=== PATIENT | female | born 1960 | race Caucasian/White ===

== ENCOUNTER 2016-08-28 15:52 | Emergency (ER) | payer MEDICARE, MEDICAID ==
[~2016-08-28] VITALS: Ht 160 cm; Wt 97.5 kg
[~2016-08-28 15:52] MED LIST: ALBUTEROL0.09 MG/A2 IH; AMOXICILLIN500 M1 PO; ARICEPT10 MG PO; BENTYL10 MG PO; CEPHALEXIN; CIPRO500 MG PO; CLARITIN10 MG PO; CLINDAMYCIN150 MG PO; CORTISPORIN SUS10 ML OT; DONEPEZIL HYDRO10 M1; FLAGYL500 MG PO; HYDROCHLOROTHIA25 MG; KEFLEX500 MG PO; LYRICA150 MG; MOTRIN800 MG; OYSTER CALCIUM1 TAB PO; PAXIL10 MG PO; PREDNICOT10 MG PO; SIMVASTATIN20 MG; THE MEDICINE S400 IU PO; VIBRAMYCIN100 MG PO; VICODIN 5/500 505 MG PO; Zofran4 MG PO
[2016-08-28 16:10] VITALS: BP 127/58
[2016-08-28] MEDS ORDERED: Motrin,Rufen800 MG PO (16:54)
== END 2016-08-28 17:00 | disposition home or self-care (01) ==
LOC: ED 15:52
DX: M17.11 Unilateral primary osteoarthritis, right knee (principal); F17.200 Nicotine dependence, unspecified, uncomplicated; Z88.6 Allergy status to analgesic agent; Z88.8 Allergy status to other drugs, medicaments and biological substances; Z79.899 Other long term (current) drug therapy

== ENCOUNTER → 2016-11-07 | Outpatient (CLI) | payer MEDICARE, MEDICAID ==
[~2016-11-07] MED LIST changes: +Motrin,Rufen800 MG PO
== END | disposition home or self-care (01) ==
LOC: ORTHO 02:03
DX: M17.11 Unilateral primary osteoarthritis, right knee (principal)

== ENCOUNTER → 2016-12-16 | Outpatient (CLI) | payer MEDICARE, MEDICAID | END | disposition home or self-care (01) | LOC: CT 11-12 08:00 | DX: M17.11 Unilateral primary osteoarthritis, right knee (principal) ==

== ENCOUNTER → 2017-02-25 | Outpatient (CLI) | payer MEDICARE, MEDICAID ==
[~2017-02-25] MED LIST changes: +MULTIPLE VITAM1 EACH PO; +PROBIOTIC250 MG PO; -SIMVASTATIN20 MG; +SIMVASTATIN20 MG PO; +VITAMIN D-32000 UNIT PO
[2017-02-25 10:41] LABS: BASO # 0.1 10*3/uL (0.0-0.1); BASO % 0.8 % (0.0-1.0); EOS # 0.5 10*3/uL (0.0-0.4); EOS % 4.1 % (1.0-4.0); HEMATOCRIT 45.3 % (37.0-47.0); HEMOGLOBIN 15.3 g/dl (12.0-16.0); LYMPH # 2.1 10*3/uL (1.3-4.4); LYMPH % 17.6 % (27.0-41.0); MEAN CORPUSCULAR HGB 32.1 pg (27.0-31.0); MEAN CORPUSCULAR HGB CONC 33.8 g/dl (33.0-37.0); MEAN PLATELET VOLUME 9.7 fl (9.6-12.3); MONO # 1.1 10*3/uL (0.1-1.0); MONO % 9.7 % (3.0-9.0); NEUT % 67.4 % (47.0-73.0); PLATELET COUNT AUTOMATED 231 10*3/uL (130-400); RED BLOOD COUNT 4.77 10*6/uL (4.10-5.10); RED CELL DISTRI WIDTH 14.2 % (0-14.5); WHITE BLOOD COUNT 11.8 10*3/uL (4.8-10.8)
[2017-02-25 10:54] LABS: BILIRUBIN NEGATIVE (NEGATIVE); BLOOD TRACE-INTACT (NEGATIVE); CLARITY SL CLOUDY (CLEAR); COLOR YELLOW (YELLOW); GLUCOSE NEGATIVE (NEGATIVE); KETONE NEGATIVE (NEGATIVE); LEUKO ESTERASE NEGATIVE (NEGATIVE); NITRITE NEGATIVE (NEGATIVE); UROBILINOGEN 0.2 E.U./dl (0.2-1.0)
[2017-02-25 11:03] LABS: BACTERIA 2+; YEAST TRACE
[2017-02-25 11:08] LABS: ALBUMIN 3.5 gm/dl (3.1-4.5); ALKALINE PHOSPHATASE 124 U/L (45-117); BUN 12 mg/dl (7-24); CHLORIDE 106 mmol/L (98-107); CREATININE 0.76 mg/dL (0.55-1.02); POTASSIUM 3.7 mmol/L (3.5-5.1); SGOT/AST 18 IU/L (3-35); SGPT/ALT 20 U/L (12-78); SODIUM 141 mmol/L (136-145); TOTAL PROTEIN 7.4 gm/dL (6.4-8.2)
== END | disposition home or self-care (01) ==
LOC: LAB 08:52
PROVIDERS: Orthopaedic Surgery
DX: M17.11 Unilateral primary osteoarthritis, right knee (principal); Z79.899 Other long term (current) drug therapy

== ENCOUNTER 2017-03-04 03:11 | Inpatient (IN) | payer MEDICARE, MEDICAID ==
[2017-02-25 09:34] VITALS: BP 143/78
[~2017-03-04] VITALS: Ht 160 cm; Wt 96.8 kg
[2017-03-04] VITALS (11 sets, daily range): BP systolic 103–133; BP diastolic 49–84
--- NOTE | 2017-03-04 11:08 | NUR ---
pt off floor..IS placed in room
--- NOTE | 2017-03-04 12:21 | NUR ---
A 57, admitted to , under the services of PEACE De La Paz DO with a diagnosis of TOTAL RIGHT KNEE ARTHROPLASTY. Chief complaint is KNEE PAIN. Patient arrived via ambulatory from [place]. Monitor applied. Initial assessment completed. Vital signs taken and recorded. PEACE DE LA PAZ DO notified of admission to the unit. Orders received. See assessment for past medical history, medications and allergies. Patient and/or family oriented to unit. [facility] visitation policy reviewed. Clothing/patient valuable form completed. DWIGHT TURPIN
--- NOTE | 2017-03-04 13:27 | NUR ---
PHYSICAL THERAPY PAtient reports she is not awake enough for PT at this time. Donna Marshall,PT
--- NOTE | 2017-03-04 14:36 | NUR ---
PT REQUESTED PAIN MEDICTION FOR POST-OP PAIN. PAIN RATED AT 10 OUT OF 10. DESCRIBED CONSTANT, ACHING, THROBBING, AND SHARP. DILAUDID GIVEN.
--- NOTE | 2017-03-04 14:41 | NUR ---
PHYSICAL THERAPY PAtient evaluated on 4, full evaluation to follow. COntimnue with PT as per plan of care with fall, TKA right LE WBAT and significant pain precautions. Will require SNF for imnpaired mobilty. PAtient is high complexity via chart review, tests and evaluation: 74167. Thank you for this referral. Donna Marshall,PT
--- NOTE | 2017-03-04 17:20 | NUR ---
DIRECTOR OF CUSTOMER SERVICE AND MADE AWARE THAT PT LEFT AMA.
--- NOTE | 2017-03-04 18:56 | NUR ---
PT PLACED ON CPM MACHINE. TOLERATED WELL. CALL LIGHT IN REACH. DAUGHTER IN ROOM.
--- NOTE | 2017-03-04 20:17 | NUR ---
5 RESTING IN BED WITH HOB ELEVATED. SIDE RAILS UP X'S 2. CALL LIGHT IN REACH. HEP LOCK INTACT. CPM MACHINE INTACT R LEG. MAGALLON PATENT AND DRAINING CLEAR YELLOW URINE. DRSG D/I LEFT LEG. NO DRNG NOTED. TRAPEZE TO BED. SCD INTACT TO LEFT LEG. TOES R FOOT WARM AND MOVEABLE.
--- NOTE | 2017-03-04 21:30 | NUR ---
2114 CPM MACHINE REMOVED. PT REPOSITIONED. HEEL PROTECTORS APPLIED PER ORDER. 2119 DILAUDID 1MG IV GIVEN ORDERED FOR POST-OP R KNEE PAIN, WILL MONITOR.
--- NOTE | 2017-03-04 22:10 | NUR ---
EARLIER DILAUDID EFFECTIVE. DRINKING HOT TEA. SHERITA REMAINS PATENT. NO DISTRESS NOTED. CONDITION GUARDED.
[2017-03-05] VITALS: BP 110/61
[2017-03-05 04:00] VITALS: BP 103/65
[2017-03-05 06:32] LABS: HEMATOCRIT 36.7 % (37.0-47.0); HEMOGLOBIN 12.3 g/dl (12.0-16.0); MEAN CELL VOLUME 95.6 fl (81.0-99.0); MEAN CORPUSCULAR HGB CONC 33.5 g/dl (33.0-37.0); MEAN PLATELET VOLUME 9.5 fl (9.6-12.3); PLATELET COUNT AUTOMATED 208 10*3/uL (130-400); RED BLOOD COUNT 3.84 10*6/uL (4.10-5.10); WHITE BLOOD COUNT 22.3 10*3/uL (4.8-10.8)
[2017-03-05 07:04] LABS: ALBUMIN 2.9 gm/dl (3.1-4.5); ALKALINE PHOSPHATASE 116 U/L (45-117); BUN 14 mg/dl (7-24); CHLORIDE 108 mmol/L (98-107); CHOLESTEROL 131 mg/dL (<200); FREE T4 1.47 ng/dl (0.76-1.46); HDL CHOLESTEROL 40 mg/dl (40-60); LDL CHOLESTEROL 55 mg/dL (9-159); PHOSPHOROUS 3.6 mg/dL (2.5-4.9); PLATELET SUFFICIENCY NORMAL (NORMAL); POTASSIUM 3.9 mmol/L (3.5-5.1); SGOT/AST 18 IU/L (3-35); SGPT/ALT 17 U/L (12-78); SODIUM 140 mmol/L (136-145); TOTAL CELLS COUNTED 100 #CELLS; TOTAL PROTEIN 6.5 gm/dL (6.4-8.2); TRIGLYCERIDES 182 mg/dl (<150); VLDL CHOLESTEROL 36 mg/dL (6-40)
[2017-03-05 07:09] LABS: THYROID STIM HORMONE (HS) 0.309 uIU/ml (0.358-4.75)
[2017-03-05 07:45] LABS: VITAMIN D, 25-HYDROXY 49.2 ng/mL (30-100)
[2017-03-05 08:00] VITALS: BP 104/56
--- NOTE | 2017-03-05 08:00 | NUR ---
Cut Out Worker in to talk to patient. Patient states lives at HOME ALONE with . There are A LOT steps in the home. Physician: DR DURAN Pharmacy: [facility] Home health services: NONE Patient's level of ADLs: MODERATE ASSIST Patient has working utilities: YES DME: CANE/WALKER/[facility] Follow-up physician's appointment after d/c: WILL BE MADE PRIOR TO Does patient want to access PORTAL?: Discharge plan . YUE DICKSON PT REQUESTING SNF STAY. PREFERS [facility] BUT WILL GO TO [facility] IF [facility] NOT POSSIBLE. [facility] NETWORK SECURITY ANALYST WILL MAKE REFERRAL. WILL NEED 3 NIGHT STAY.
--- NOTE | 2017-03-05 08:47 | NUR ---
GAVER PATIENT PRN MEDICATION FOR PAIN. PATIENT RATED A PAIN 7 OUT OF 10. WILL REASSESS FOR EFFECTIVENESS OF MEDICATION. SEE SHIFT ASSESSMENT
--- NOTE | 2017-03-05 09:27 | NUR ---
Faxed referral to [facility] for [facility] suites, will require 3 night stay. waiting on acceptance.
--- NOTE | 2017-03-05 09:30 | NUR ---
MAGALLON CATH DISCONTINUED, EARLY INTERVENTION SPECIALIST DISCONTINUED. LUISITO REED
--- NOTE | 2017-03-05 11:24 | NUR ---
PHYSICAL THERAPY Patient seen this am 1:1 for therapy supine in bed with compression pump L LE and reports 6/10 R knee pain. Patient instructed and performed supine R LE therex including gentle flexion to improve ROM, voicing increased c/o pain. Patient transfers sup to sit and sit to stand Min A x 1 and ambulates with use of wh walker, 40'x 1, demonstrating antalgic "step to" gait pattern. Patient returned to bedside chair and remained semi reclined with call light, telephone and tray table. Will continue per POC as tolerated to return to PLOF. Omid Coleman, BREAKER UP MACHINE OPERATOR
[2017-03-05 12:00] VITALS: BP 118/60
--- NOTE | 2017-03-05 12:22 | NUR ---
PHYSICAL THERAPY Derian seen this PM 1:1, Pt was up in her bedside chair from this morning's treatment and wanting back in bed, wanting to rest her leg. Start with Pt in sitting rom right LE, knee. Working right knee flexion, extension to Pt's pain tolerance and getting her to relax. Sit/stand and up on wheeled walker MIN A X 1, standing balance with weight shift and is WBAT and imoroving with her WBAT with weight shift. Then pivot and stand at bedside with another weight shift, then back sitting, back supine with therapy helping with right LE due to pain. Pt supine working act knee extension. Pt with call light and phone having no new complaint. Pt said that she will be ready for tomorrow. JOHN GAMBLE MILL CONTROLLER.
--- NOTE | 2017-03-05 15:39 | NUR ---
NORCO GIVEN FOR C/O RT KNEE PAIN. RATES 6/10 ON PAIN SCALE. WILL MONITOR.
[2017-03-05 16:00] VITALS: BP 110/63
[2017-03-05 20:00] VITALS: BP 122/67
--- NOTE | 2017-03-05 22:21 | NUR ---
PATIENT MEDICATED WITH NORCO PER PRN ORDER FOR C/O R. KNEE PAIN. RATED PAIN A 5/10 WITH 10 BEING THE WORST. PATIENT PLACED ON CPM MACHINE.
--- NOTE | 2017-03-05 23:45 | NUR ---
PATIENT RESTING BETTER. PAIN HAS DECREASED, REQUESTING TO BE REMOVED FROM CPM MACHINE.
[2017-03-06] VITALS: BP 142/73
--- NOTE | 2017-03-06 05:36 | NUR ---
PATIENT MEDICATED SLOWLY WITH DILAUDID PER PRN ORDER FOR C/O PAIN IN R. KNEE . RATED PAIN A 9/10 WITH 10 BEING THE WORST. SEE EMAR. REINFORCED USE OF CALL LIGHT
[2017-03-06 06:38] LABS: HEMATOCRIT 34.5 % (37.0-47.0); HEMOGLOBIN 11.5 g/dl (12.0-16.0); MEAN CELL VOLUME 96.1 fl (81.0-99.0); MEAN CORPUSCULAR HGB CONC 33.3 g/dl (33.0-37.0); MEAN PLATELET VOLUME 9.7 fl (9.6-12.3); PLATELET COUNT AUTOMATED 199 10*3/uL (130-400); RED BLOOD COUNT 3.59 10*6/uL (4.10-5.10); RED CELL DISTRI WIDTH 14.1 % (0-14.5); WHITE BLOOD COUNT 15.1 10*3/uL (4.8-10.8)
--- NOTE | 2017-03-06 06:45 | NUR ---
PATIENT RESTING QUIETLY. MEDICATION GIVEN EARLIER HELPED DECREASE PAIN.
[2017-03-06 07:07] LABS: BUN 22 mg/dl (7-24); CHLORIDE 109 mmol/L (98-107); CREATININE 0.82 mg/dL (0.55-1.02); POTASSIUM 3.8 mmol/L (3.5-5.1); SODIUM 142 mmol/L (136-145)
[2017-03-06 07:41] LABS: BASOPHILS 1 % (0-1); PLATELET SUFFICIENCY NORMAL (NORMAL); TOTAL CELLS COUNTED 100 #CELLS
[2017-03-06 08:00] VITALS: BP 122/60
--- NOTE | 2017-03-06 08:08 | NUR ---
Patient has been accepted to Rehab suites. Requires 3 night stay, can go Friday03/07/17 if medically stable for discharge.
--- NOTE | 2017-03-06 08:28 | NUR ---
PATIENT IS CURRENTLY SITTING IN CHAIR EATING BREAKFAST, PATIENT DENIED REQUEST FOR A BATH. JONNIE MARIE CABRERA
--- NOTE | 2017-03-06 09:49 | NUR ---
MEDICATED PO NORCO FOR C/O RIGHT KNEE PAIN.
--- NOTE | 2017-03-06 10:30 | NUR ---
NO FURTHER C/O AT THIS TIME.
--- NOTE | 2017-03-06 11:00 | NUR ---
DR. DR. PRITCHARD IN TO SEE PT AND CHANGED DRESSING-SITE ASYMPTOMATIC JONNIE MARIE SPNRCC
--- NOTE | 2017-03-06 11:19 | NUR ---
PHYSICAL THERAPY Mrs Hadley was seen this AM 1:1 and pt was up in her bedside chair by nursing. Said that nursing walker me the door and back. Pt going to sit and rest at this time. I stopped back 1 1/2 hour later to treat pt and Tereasa was back in bed. Will check back this PM. JOHN GAMBLE ASSISTANT REFINERY OPERATOR.
--- NOTE | 2017-03-06 11:30 | NUR ---
CPM MACHINE APPLIED AT 40 DEGREES, PT TOLERATED WELL JONNIE GONZALEZ
--- NOTE | 2017-03-06 11:36 | NUR ---
CMP PLACED ON PT.
[2017-03-06 12:00] VITALS: BP 125/76
--- NOTE | 2017-03-06 12:01 | NUR ---
TO X-RAY FOR ULTRASOUND, [facility] MACHINE REMOVED JONNIE EMERSON
--- NOTE | 2017-03-06 12:32 | NUR ---
BACK FROM X-RAY, DOES NOT WANT CPM MACHINE BACK ON AT PRESENT JONNIE GONZALEZ
--- NOTE | 2017-03-06 12:47 | NUR ---
MEDICATED IV DILAUDID FOR C/O RIGHT KNEE PAIN. STATES SHE THINKS CPM MAKES PAIN WORSE. WILL CONTINUE TO MONITOR.
--- NOTE | 2017-03-06 13:33 | NUR ---
PHYSICAL THERAPY Mrs Hadley seen this PM 1:1 for her therapy treatment, Pt supine in bed. Transfer supine/sit to edg of her bed working right knee flexion to pain tolerance flexion, then into extension. Sit/stand MIN A X 1. Gait with wheeled walker total 45' X 1, CGA X 1, and much verbal cueing for proper step through weight shift and improving. Pt up in her bedside chair, call light and phone no complaint but her knee pain. JOHN GAMBLE ATMOSPHERIC DRIER TENDER.
--- NOTE | 2017-03-06 13:57 | NUR ---
RESTING QUIETLY NO FURTHER C/O PAIN.
--- NOTE | 2017-03-06 13:58 | NUR ---
SITTING IN CHAIR, WAS WALKING IN ROOM WITH PT, TOLERATED WELL JONNIE GONZALEZ
[2017-03-06 16:00] VITALS: BP 132/51
--- NOTE | 2017-03-06 16:00 | NUR ---
RESTING QUIETLY NO C/O NO DISTRESS NOTED. STATES MUCH MORE COMFORTABLE NOW. WILL CONTINUE TO MONITOR.
--- NOTE | 2017-03-06 18:56 | NUR ---
MEDICATED PO NORCO FOR C/O PAIN.
[2017-03-06 20:00] VITALS: BP 134/62
--- NOTE | 2017-03-06 20:10 | NUR ---
CPM PLACED ON PATIENT.
--- NOTE | 2017-03-06 20:25 | NUR ---
PATIENT MEDICATED SLOWLY WITH DILAUDID PER PRN ORDER FOR C/O R. LEG PAIN. RATED PAIN A 6/10 WITH 10 BEING THE WORST. SEE EMAR. REINFORCED USE OF CALL LIGHT.
--- NOTE | 2017-03-06 21:30 | NUR ---
MEDICATION HELPED PAIN A LITTLE. PATIENT REMOVED FROM CPM MACHINE AT HER REQUEST. REINFORCED USE OF CALL LIGHT.
[2017-03-07] VITALS: BP 124/59
--- NOTE | 2017-03-07 03:09 | NUR ---
PATIENT MEDICATED SLOWLY WITH DILAUDID PER PRN ORDER FOR C/OR. LEG PAIN. RATED PAIN A 7/10 WITH 10 BEING THE WORST. SEE EMAR. REINFORCED USE OF CALL LIGHT,
[2017-03-07 06:10] LABS: HEMATOCRIT 34.5 % (37.0-47.0); HEMOGLOBIN 11.4 g/dl (12.0-16.0); MEAN CELL VOLUME 95.8 fl (81.0-99.0); MEAN CORPUSCULAR HGB 31.7 pg (27.0-31.0); MEAN PLATELET VOLUME 9.5 fl (9.6-12.3); PLATELET COUNT AUTOMATED 209 10*3/uL (130-400); RED CELL DISTRI WIDTH 14.1 % (0-14.5); WHITE BLOOD COUNT 14.2 10*3/uL (4.8-10.8)
[2017-03-07 07:35] LABS: BASOPHILS 2 % (0-1); PLATELET SUFFICIENCY NORMAL (NORMAL); TOTAL CELLS COUNTED 100 #CELLS
[2017-03-07 08:00] VITALS: BP 122/60
--- NOTE | 2017-03-07 09:49 | NUR ---
PHYSICAL THERAPY Patient presented to therapy with report of pain in the R Knee of 6/10. Patient was supine in bed. Patient performed supine to sitting at EOB with moderate assistance to move R LE to floor. Patient transferred sit to stand with SBA. Patient performed wt. shifting at W/W with Close Supervision. Patient then ambulated with W/W inside room 60' x 1 with Close Supervision. Patient performed ther ex in seated position with LEs raised ,including quad sets, ankle pumps, SLR with AAROM, hip abduction, and heel slides. Patient was left in seated position with call light within reach and LEs raised. Patient was 1:1 with this DAY CARE PROVIDER for 25 minutes total. ОЛЕГ TORO DAY CARE PROVIDER
--- NOTE | 2017-03-07 11:00 | NUR ---
PATIENT ON CPD AT 50 DEGREES. PATIENT TOLERATING WELL
[2017-03-07] MEDS ORDERED: VICO75300 PO (11:52)
[2017-03-07 12:00] VITALS: BP 118/72
[2017-03-07] MEDS ORDERED: LOVENOX30 MG/0.3 SC (12:22)
--- NOTE | 2017-03-07 13:29 | NUR ---
Patient is discharged to rehab suites, transportation scheduled for 2:00 PM, Nh and nursing notified.
--- NOTE | 2017-03-07 13:55 | NUR ---
CALLED REPORT TO OPAL AT THE REHAB SUITES
--- NOTE | 2017-03-07 13:59 | NUR ---
PHYSICAL THERAPY Patient was supine in bed this pm when approached for therapy, reporting 6/10 R knee pain and presented without cole wrap, but increased R LE edema. Patient transfered sup to stand, Min A with R LE support and ambulated with use of wh walker, 50'x 1, slow gayatri, demonstrating R LE antalgic / "step to" gait pattern. Patient states she has been compliant with CPM and remains a little sore each time following its use. Patient returned to supine in bed and tolerated PROM R knee flexion to improve ROM with decreased c/o pain. Patient will continue per POC to improve functional mobilty as tolerated and reports no change in pain c/o 6/10 following treatment. Omid Coleman, NAILER HAND
--- NOTE | 2017-03-07 14:40 | NUR ---
PT REQUESTED TO SPEAK WITH SW. SW SPOKE TO PT ABOUT MEDICIAD REAPPLICATION PROCESS. PT'S YEARLY EVALUATION FOR MEDICIAD IS DUE THE . SW ADVISED PT TO CALL [facility] TO LET THEM KNOW THAT SHE WAS IN HOSPITAL AND GOING TO REHAB SUITES AND SOME ITEMS MAY BE LATE. ADALBERTO ALSO ADVISED THAT SW AT REHAB SUITES CAN ASSIST PT IN SENDING COPIES TO [facility] OF WHAT SHE HAS. PT WAS THANKSFUL FOR THE ADVICE AND ASSISTANCE.
--- NOTE | 2017-03-07 14:43 | NUR ---
Discharge instructions reviewed with patient/family. Patient receptive and verbalizes understanding. Follow-up care arranged. Written instructions given to patient/family. GHISLAINE MENDEZ
--- NOTE | 2017-03-07 16:27 | NUR ---
PHYSICAL THERAPY CO-SIGN I approve of the Phyical Therapy notes written above. RJ DOYLE PT
== END 2017-03-07 14:43 | disposition other institution (70) | DRG 470 ==
LOC: SDC 03:11 → 4E 07:37 → SDC 08:45 → 4E 08:49
PROVIDERS: Student in an Organized Health Care Education/Training Program; ADMIT Internal Medicine
PROC: 0SRC0J9 Replacement of Right Knee Joint with Synthetic Substitute, Cemented, Open Approach (ICD-10-PCS; principal; 2017-03-04)
DX: M17.11 Unilateral primary osteoarthritis, right knee (principal); K76.0 Fatty (change of) liver, not elsewhere classified; D72.823 Leukemoid reaction; E78.5 Hyperlipidemia, unspecified; E66.9 Obesity, unspecified; E55.9 Vitamin D deficiency, unspecified; F17.210 Nicotine dependence, cigarettes, uncomplicated; Z83.3 Family history of diabetes mellitus; Z82.49 Family history of ischemic heart disease and other diseases of the circulatory system; Z88.5 Allergy status to narcotic agent; Z88.6 Allergy status to analgesic agent; Z88.8 Allergy status to other drugs, medicaments and biological substances; Z71.6 Tobacco abuse counseling; Z90.710 Acquired absence of both cervix and uterus; Z68.37 Body mass index [BMI] 37.0-37.9, adult; Z79.1 Long term (current) use of non-steroidal anti-inflammatories (NSAID); Z79.899 Other long term (current) drug therapy; Z22.322 Carrier or suspected carrier of Methicillin resistant Staphylococcus aureus

== ENCOUNTER 2017-03-25 15:12 | Inpatient (IN) | payer MEDICARE, MEDICAID ==
[~2017-03-25] VITALS: Ht 160 cm; Wt 99.8 kg
--- NOTE | ~2017-03-25 | PR ---
[place], [place] PROGRESS NOTE NAME: [id number] UNIT #: [id number] ROOM: 528 DOCTOR: BRENDA MCCRAY,JULY BIRTHDATE: [birth year] DOS: 03/30/2017 SUBJECTIVE: The patient is being followed for possible right knee infection. She had a total knee arthroplasty done with possible postop infection. She had knee cellulitis at the time of admission. I aspirated from the knee. Cultures have been negative. Blood cultures are negative. ID is following for the above. She is currently on Teflaro and rifampin with anticipated 4-6 weeks of IV antibiotics. She is doing well, tolerating the antibiotics. Denies fevers, chills, nausea, vomiting or diarrhea. No rash or itch. No cough, shortness of breath. Pain in the right knee is improving. VITAL SIGNS: Show temperature 98.0, pulse 61, respirations 16, BP 106/48. CURRENT MEDICATIONS: Include Teflaro, rifampin, [place], vitamin D, multivitamin, Lovenox, Aricept, Zocor, Lyrica, Claritin, Vicoprofen, Restoril and Zofran. LABORATORY DATA: WBCs 10.6, platelets 208. BUN 19, creatinine 1.15. LFTs within normal limits. PHYSICAL EXAMINATION: GENERAL: A 57-year-old female, in no acute distress. THROAT: Normocephalic, no thrush. LUNGS: Clear to auscultation bilaterally. No respirations even and unlabored. HEART: Regular rhythm. No murmur appreciated. ABDOMEN: Soft, nontender. EXTREMITIES: Mild edema in the right lower extremity. SKIN: Warm, dry, free of rashes. PICC in place. Dressing dry and intact. ASSESSMENT: Right knee cellulitis postoperatively from a total knee arthroplasty with concern for knee involvement. PLAN: We will continue the Teflaro and rifampin for 4-6 weeks. I discussed with the patient. She has [place] Medicaid. Normally, they will cover home IV antibiotics if that is at all possible as opposed to having to come into the hospital to receive them. Case discussed with Dr. Isis Nails. She will need follow up as an outpatient with Dr. Churchill. JULY MAHENDRA GUTIERREZ [place], [place] PROGRESS NOTE NAME: LANDEN BENITEZ UNIT #: [id number] ROOM: 528 DOCTOR: BRENDA MCCRAYJULY BIRTHDATE: [birth year] [place] NAILS MD CM:PNCAROL [id number] GIRISH BRENDA MCCRAY 03/31/17 0545 interface
--- NOTE | ~2017-03-25 | PR ---
[place], [place] PROGRESS [id number] #: [id number] ROOM: 528 DOCTOR: BRENDA MCCRAY,JULY BIRTHDATE: [birth year] DOS: 03/29/2017 SUBJECTIVE: The patient is a 57-year-old female who is being followed for a right knee cellulitis and infection. She had a radial head ____ total knee arthroplasty. She has had synovial fluid culture from the knee from the . Culture is negative. No organisms on Gram stain. Admitting blood cultures from the are sterile. Her urine cultures are sterile. She is currently on Teflaro and rifampin. ID is following for right knee cellulitis, WBCs are 12.0, platelets 249, BUN 20, creatinine 1.25. LFTs within normal limits. She is alert and oriented, tolerating the antibiotics. No nausea or vomiting. Stools are little loose. No rash or itch. No cough or shortness of breath. No recent fevers or shaking chills. Pain in the right knee is improving. CURRENT MEDICATIONS: Include Teflaro, rifampin, Lasix, [place], multivitamin, Lovenox, Aricept, Zocor, Lyrica, Claritin, Vicoprofen, Restoril, Zofran, milk of mag, Dulcolax, and Tylenol. PHYSICAL EXAMINATION: VITAL SIGNS: Show temperature 98.6, pulse 69, respirations 20, BP 140/77. GENERAL: A 57-year-old female in no acute distress. HEAD, EYES, EARS, NOSE AND THROAT: Normocephalic, no thrush. LUNGS: Clear to auscultation bilaterally. RESPIRATIONS: Even and unlabored. HEART: Regular rhythm. No murmur appreciated. ABDOMEN: Soft, nontender. EXTREMITIES: Right lower extremity +2 edema. Right knee with some scabbing along the incision. No erythema. Does have increased warmth. Mild edema of the knee. SKIN: Otherwise, warm, dry, free of rashes. Right arm PICC in place. Dressing dry and intact. No phlebitis. ASSESSMENT: Right knee cellulitis, possible postop infection, status post total knee arthroplasty. PLAN: Synovial fluid cultures were negative. This may be a superficial infection. She is to have 4-6 weeks of IV antibiotics as per Dr. Churchill and case discussed with Dr. Isis Nails. Arrangements were being made for her discharge Friday for home IV antibiotics. ADDENDUM After reviewing the chart, labs and radiographs, I agree with the following plans as described above. We will follow the patient up clinically and adjust accordingly. JULY MAHENDRA GUTIERREZ [place], [place] PROGRESS NOTE NAME: LANDEN BENITEZ UNIT #: [id number] ROOM: 528 DOCTOR: BRENDA MCCRAY BIRTHDATE: [birth year] [employer] NAILS MD CM:PNTRANS [id number] JULY BRENDA MCCRAY 03/30/17 0704 interface
[~2017-03-25 15:12] MED LIST changes: +ARICEPT10 M1 PO; -ARICEPT10 MG PO; +LOVENOX30 MG/0.3 SC; +VICO75300 PO
[2017-03-25 15:15] VITALS: BP 130/57
[2017-03-25 16:18] LABS: BASO # 0.1 10*3/uL (0.0-0.1); BASO % 0.5 % (0.0-1.0); EOS # 0.4 10*3/uL (0.0-0.4); EOS % 2.8 % (1.0-4.0); HEMATOCRIT 36.4 % (37.0-47.0); HEMOGLOBIN 12.1 g/dl (12.0-16.0); LYMPH # 2.5 10*3/uL (1.3-4.4); LYMPH % 16.2 % (27.0-41.0); MEAN CELL VOLUME 96.6 fl (81.0-99.0); MEAN CORPUSCULAR HGB 32.1 pg (27.0-31.0); MEAN CORPUSCULAR HGB CONC 33.2 g/dl (33.0-37.0); MONO # 1.3 10*3/uL (0.1-1.0); MONO % 8.3 % (3.0-9.0); NEUT # 11.1 10*3/uL (2.3-7.9); NEUT % 71.6 % (47.0-73.0); PLATELET COUNT AUTOMATED 345 10*3/uL (130-400); RED BLOOD COUNT 3.77 10*6/uL (4.10-5.10); RED CELL DISTRI WIDTH 14.6 % (0-14.5); WHITE BLOOD COUNT 15.5 10*3/uL (4.8-10.8)
[2017-03-25 16:33] LABS: ALBUMIN 3.1 gm/dl (3.1-4.5); ALKALINE PHOSPHATASE 115 U/L (45-117); BUN 14 mg/dl (7-24); CHLORIDE 109 mmol/L (98-107); CREATININE 1.01 mg/dL (0.55-1.02); POTASSIUM 3.8 mmol/L (3.5-5.1); SGOT/AST 19 IU/L (3-35); SGPT/ALT 27 U/L (12-78); SODIUM 142 mmol/L (136-145); TOTAL PROTEIN 7.3 gm/dL (6.4-8.2)
[2017-03-25 19:05] VITALS: BP 134/57
[2017-03-25 19:21] LABS: BILIRUBIN NEGATIVE (NEGATIVE); BLOOD NEGATIVE (NEGATIVE); CLARITY CLOUDY (CLEAR); COLOR YELLOW (YELLOW); GLUCOSE NEGATIVE (NEGATIVE); KETONE NEGATIVE (NEGATIVE); LEUKO ESTERASE NEGATIVE (NEGATIVE); NITRITE NEGATIVE (NEGATIVE); UROBILINOGEN 0.2 E.U./dl (0.2-1.0)
[2017-03-25 19:28] LABS: BACTERIA 4+; RBC 0-2 rbc/hpf (0-2)
[2017-03-25 20:00] VITALS: BP 134/57
[2017-03-26] VITALS: BP 108/58
[2017-03-26 06:19] LABS: HEMATOCRIT 34.6 % (37.0-47.0); HEMOGLOBIN 11.6 g/dl (12.0-16.0); MEAN CELL VOLUME 96.1 fl (81.0-99.0); MEAN CORPUSCULAR HGB 32.2 pg (27.0-31.0); MEAN CORPUSCULAR HGB CONC 33.5 g/dl (33.0-37.0); PLATELET COUNT AUTOMATED 299 10*3/uL (130-400); RED CELL DISTRI WIDTH 14.6 % (0-14.5); WHITE BLOOD COUNT 9.8 10*3/uL (4.8-10.8)
[2017-03-26 06:55] LABS: ALBUMIN 2.9 gm/dl (3.1-4.5); ALKALINE PHOSPHATASE 110 U/L (45-117); BUN 11 mg/dl (7-24); CHLORIDE 110 mmol/L (98-107); CREATININE 0.77 mg/dL (0.55-1.02); PHOSPHOROUS 3.9 mg/dL (2.5-4.9); POTASSIUM 3.7 mmol/L (3.5-5.1); SGOT/AST 15 IU/L (3-35); SGPT/ALT 25 U/L (12-78); SODIUM 142 mmol/L (136-145); TOTAL PROTEIN 6.7 gm/dL (6.4-8.2)
[2017-03-26 07:00] LABS: BASOPHILS 2 % (0-1); PLATELET SUFFICIENCY NORMAL (NORMAL); TOTAL CELLS COUNTED 100 #CELLS
[2017-03-26 08:00] VITALS: BP 121/60
[2017-03-26 12:00] VITALS: BP 116/59
[2017-03-26 16:00] VITALS: BP 131/61
[2017-03-26 20:00] VITALS: BP 150/88
[2017-03-27] VITALS: BP 130/74
[2017-03-27 06:29] LABS: HEMATOCRIT 35.1 % (37.0-47.0); HEMOGLOBIN 11.6 g/dl (12.0-16.0); MEAN CELL VOLUME 95.9 fl (81.0-99.0); MEAN CORPUSCULAR HGB 31.7 pg (27.0-31.0); MEAN PLATELET VOLUME 9.2 fl (9.6-12.3); PLATELET COUNT AUTOMATED 291 10*3/uL (130-400); RED BLOOD COUNT 3.66 10*6/uL (4.10-5.10); RED CELL DISTRI WIDTH 14.3 % (0-14.5); WHITE BLOOD COUNT 14.3 10*3/uL (4.8-10.8)
[2017-03-27 06:52] LABS: BUN 13 mg/dl (7-24); CHLORIDE 110 mmol/L (98-107); CREATININE 1.08 mg/dL (0.55-1.02); POTASSIUM 3.7 mmol/L (3.5-5.1); SODIUM 142 mmol/L (136-145)
[2017-03-27 07:19] LABS: TOTAL CELLS COUNTED 100 #CELLS
[2017-03-27 07:20] LABS: PLATELET SUFFICIENCY NORMAL (NORMAL)
[2017-03-27 08:00] VITALS: BP 154/76
[2017-03-27 12:00] VITALS: BP 121/71
[2017-03-27 16:00] VITALS: BP 123/68
[2017-03-27 20:00] VITALS: BP 155/83
[2017-03-28] VITALS: BP 151/84
[2017-03-28 06:57] LABS: BASO # 0.1 10*3/uL (0.0-0.1); BASO % 0.5 % (0.0-1.0); EOS # 0.3 10*3/uL (0.0-0.4); EOS % 2.5 % (1.0-4.0); HEMATOCRIT 34.3 % (37.0-47.0); HEMOGLOBIN 11.2 g/dl (12.0-16.0); LYMPH # 1.5 10*3/uL (1.3-4.4); LYMPH % 12.7 % (27.0-41.0); MEAN CELL VOLUME 96.6 fl (81.0-99.0); MEAN CORPUSCULAR HGB 31.5 pg (27.0-31.0); MEAN CORPUSCULAR HGB CONC 32.7 g/dl (33.0-37.0); MEAN PLATELET VOLUME 9.3 fl (9.6-12.3); MONO # 1.3 10*3/uL (0.1-1.0); MONO % 11.1 % (3.0-9.0); NEUT # 8.7 10*3/uL (2.3-7.9); NEUT % 72.9 % (47.0-73.0); PLATELET COUNT AUTOMATED 256 10*3/uL (130-400); RED BLOOD COUNT 3.55 10*6/uL (4.10-5.10); RED CELL DISTRI WIDTH 14.6 % (0-14.5)
[2017-03-28 07:10] LABS: CREATININE 1.23 mg/dL (0.55-1.02); PHOSPHOROUS 4.5 mg/dL (2.5-4.9); POTASSIUM 3.7 mmol/L (3.5-5.1)
[2017-03-28 08:00] VITALS: BP 138/74
[2017-03-28 12:00] VITALS: BP 158/78
[2017-03-28] MEDS ORDERED: TEFLARO600 MG IV (14:53)
[2017-03-28 16:00] VITALS: BP 152/76
[2017-03-28 20:00] VITALS: BP 132/62
[2017-03-29] VITALS: BP 143/72
[2017-03-29 06:06] LABS: BASO # 0.1 10*3/uL (0.0-0.1); BASO % 0.6 % (0.0-1.0); EOS # 0.4 10*3/uL (0.0-0.4); EOS % 3.3 % (1.0-4.0); LYMPH # 1.7 10*3/uL (1.3-4.4); MEAN CORPUSCULAR HGB 32.3 pg (27.0-31.0); MEAN CORPUSCULAR HGB CONC 33.3 g/dl (33.0-37.0); MEAN PLATELET VOLUME 9.5 fl (9.6-12.3); MONO # 1.2 10*3/uL (0.1-1.0); MONO % 9.7 % (3.0-9.0); NEUT # 8.6 10*3/uL (2.3-7.9); PLATELET COUNT AUTOMATED 249 10*3/uL (130-400); RED BLOOD COUNT 3.71 10*6/uL (4.10-5.10); RED CELL DISTRI WIDTH 14.4 % (0-14.5)
[2017-03-29 06:41] LABS: ALBUMIN 3.1 gm/dl (3.1-4.5); CREATININE 1.25 mg/dL (0.55-1.02); POTASSIUM 3.5 mmol/L (3.5-5.1)
[2017-03-29 06:44] LABS: TOTAL PROTEIN 7.1 gm/dL (6.4-8.2)
[2017-03-29 12:00] VITALS: BP 140/77
[2017-03-29 16:00] VITALS: BP 137/77
[2017-03-29 20:00] VITALS: BP 155/75
[2017-03-30] VITALS: BP 145/69
[2017-03-30 08:00] VITALS: BP 129/67
[2017-03-30 10:28] LABS: BASO # 0.1 10*3/uL (0.0-0.1); BASO % 0.6 % (0.0-1.0); EOS # 0.3 10*3/uL (0.0-0.4); EOS % 2.9 % (1.0-4.0); HEMOGLOBIN 11.7 g/dl (12.0-16.0); LYMPH # 1.2 10*3/uL (1.3-4.4); LYMPH % 11.3 % (27.0-41.0); MEAN CELL VOLUME 96.7 fl (81.0-99.0); MEAN CORPUSCULAR HGB 32.3 pg (27.0-31.0); MEAN CORPUSCULAR HGB CONC 33.4 g/dl (33.0-37.0); MEAN PLATELET VOLUME 9.7 fl (9.6-12.3); MONO # 0.9 10*3/uL (0.1-1.0); MONO % 8.6 % (3.0-9.0); NEUT # 8.1 10*3/uL (2.3-7.9); NEUT % 76.3 % (47.0-73.0); PLATELET COUNT AUTOMATED 208 10*3/uL (130-400); RED BLOOD COUNT 3.62 10*6/uL (4.10-5.10); RED CELL DISTRI WIDTH 14.3 % (0-14.5); WHITE BLOOD COUNT 10.6 10*3/uL (4.8-10.8)
[2017-03-30 11:03] LABS: CREATININE 1.15 mg/dL (0.55-1.02); POTASSIUM 3.5 mmol/L (3.5-5.1)
[2017-03-30 12:00] VITALS: BP 106/48
[2017-03-30 16:00] VITALS: BP 105/52
[2017-03-30 20:00] VITALS: BP 114/58
[2017-03-31] VITALS: BP 138/74
[2017-03-31 07:02] LABS: CREATININE 1.19 mg/dL (0.55-1.02); POTASSIUM 3.7 mmol/L (3.5-5.1)
[2017-03-31 08:00] VITALS: BP 116/60
[2017-03-31 12:00] VITALS: BP 118/62
[2017-03-31] MEDS ORDERED: Rimactane,Rifa300 MG PO (15:44)
[2017-03-31 16:00] VITALS: BP 109/92
[2017-03-31 20:00] VITALS: BP 128/69
== END 2017-03-31 21:12 | disposition home or self-care (01) | DRG 862 ==
LOC: ED 15:12 → EDHOLD 17:44 → 5E 17:44
PROVIDERS: Emergency Medicine; Internal Medicine; Internal Medicine Nephrology; Registered Nurse; ADMIT Student in an Organized Health Care Education/Training Program
PROC: 0S9C3ZX Drainage of Right Knee Joint, Percutaneous Approach, Diagnostic (ICD-10-PCS; principal; 2017-03-27)
PROC: 02HV33Z Insertion of Infusion Device into Superior Vena Cava, Percutaneous Approach (ICD-10-PCS; 2017-03-29)
DX: T81.4XXA Infection following a procedure, initial encounter (principal); N17.0 Acute kidney failure with tubular necrosis; E44.0 Moderate protein-calorie malnutrition; A04.72 Enterocolitis due to Clostridium difficile, not specified as recurrent; R13.10 Dysphagia, unspecified; E87.8 Other disorders of electrolyte and fluid balance, not elsewhere classified; L03.115 Cellulitis of right lower limb; E78.5 Hyperlipidemia, unspecified; E66.9 Obesity, unspecified; D72.825 Bandemia; F17.210 Nicotine dependence, cigarettes, uncomplicated; Z96.651 Presence of right artificial knee joint; K76.0 Fatty (change of) liver, not elsewhere classified; D72.821 Monocytosis (symptomatic); Y83.8 Other surgical procedures as the cause of abnormal reaction of the patient, or of later complication, without mention of misadventure at the time of the procedure; Z87.820 Personal history of traumatic brain injury; Z90.710 Acquired absence of both cervix and uterus; Z71.6 Tobacco abuse counseling; Z68.38 Body mass index [BMI] 38.0-38.9, adult; Z79.899 Other long term (current) drug therapy; Y92.89 Other specified places as the place of occurrence of the external cause; Z88.8 Allergy status to other drugs, medicaments and biological substances; Z88.5 Allergy status to narcotic agent; Z82.49 Family history of ischemic heart disease and other diseases of the circulatory system; Z83.3 Family history of diabetes mellitus

== ENCOUNTER → 2017-04-29 | Outpatient (CLI) | payer MEDICARE, MEDICAID ==
[~2017-04-29] MED LIST changes: +Rimactane,Rifa300 MG PO; +TEFLARO600 MG IV
== END | disposition home or self-care (01) ==
LOC: ORTHO 09:38
DX: Z47.1 Aftercare following joint replacement surgery (principal); Z96.651 Presence of right artificial knee joint

== ENCOUNTER 2017-09-23 15:53 | Inpatient (IN) | payer MEDICARE, MEDICAID ==
[~2017-09-23] VITALS: Ht 160 cm; Wt 100.4 kg
[~2017-09-23 15:53] MED LIST changes: +DUONEB 3 MG/3 ML3 M1 INH; +GUAIFEN-CODEINE5 ML PO; +LEVOFLOXACIN500 MG PO; +LYRICA150 M1 PO; -LYRICA150 MG; +PREDNISONE10 MG PO; +PROAIR HFA8.5 GM INH
[2017-09-23 15:58] VITALS: BP 146/68
[2017-09-23 16:41] LABS: HEMATOCRIT 43.7 % (37.0-47.0); HEMOGLOBIN 14.8 g/dl (12.0-16.0); MEAN CELL VOLUME 95.6 fl (81.0-99.0); MEAN CORPUSCULAR HGB 32.4 pg (27.0-31.0); MEAN CORPUSCULAR HGB CONC 33.9 g/dl (33.0-37.0); MEAN PLATELET VOLUME 9.6 fl (9.6-12.3); PLATELET COUNT AUTOMATED 253 10*3/uL (130-400); RED BLOOD COUNT 4.57 10*6/uL (4.10-5.10); RED CELL DISTRI WIDTH 14.4 % (0-14.5); WHITE BLOOD COUNT 20.4 10*3/uL (4.8-10.8)
[2017-09-23 16:57] LABS: ACT PARTIAL THROMBO TIME 24.7 SECONDS (20.8-31.5)
[2017-09-23 17:07] LABS: BILIRUBIN NEGATIVE (NEGATIVE); BLOOD NEGATIVE (NEGATIVE); CLARITY CLEAR (CLEAR); COLOR YELLOW (YELLOW); GLUCOSE NEGATIVE (NEGATIVE); KETONE NEGATIVE (NEGATIVE); LEUKO ESTERASE NEGATIVE (NEGATIVE); NITRITE NEGATIVE (NEGATIVE); PH 6.5 (5.0-9.0); UROBILINOGEN 0.2 E.U./dl (0.2-1.0)
[2017-09-23 17:07] LABS: ALBUMIN 3.6 gm/dl (3.1-4.5); ALKALINE PHOSPHATASE 142 U/L (45-117); BUN 19 mg/dl (7-24); CHLORIDE 109 mmol/L (98-107); CREATININE 0.91 mg/dL (0.55-1.02); POTASSIUM 4.6 mmol/L (3.5-5.1); SGOT/AST 57 IU/L (3-35); SGPT/ALT 50 U/L (12-78); SODIUM 141 mmol/L (136-145); TOTAL PROTEIN 8.1 gm/dL (6.4-8.2)
[2017-09-23 17:08] LABS: PLATELET SUFFICIENCY NORMAL (NORMAL); TOTAL CELLS COUNTED 100 #CELLS
[2017-09-23 17:09] LABS: POLYCHROMASIA SLIGHT
[2017-09-23 17:12] LABS: TROPONIN I < 0.015 ng/ml (<0.045)
[2017-09-23 17:15] LABS: WBC 0-2 wbc/hpf (0-5)
[2017-09-23 17:38] VITALS: BP 136/70
[2017-09-23 18:12] VITALS: BP 115/69
[2017-09-23 20:00] VITALS: BP 115/69
[2017-09-24] VITALS: BP 137/71
[2017-09-24 07:44] LABS: HEMATOCRIT 42.2 % (37.0-47.0); HEMOGLOBIN 13.9 g/dl (12.0-16.0); MEAN CELL VOLUME 96.6 fl (81.0-99.0); MEAN CORPUSCULAR HGB 31.8 pg (27.0-31.0); MEAN CORPUSCULAR HGB CONC 32.9 g/dl (33.0-37.0); MEAN PLATELET VOLUME 9.7 fl (9.6-12.3); PLATELET COUNT AUTOMATED 226 10*3/uL (130-400); RED BLOOD COUNT 4.37 10*6/uL (4.10-5.10); RED CELL DISTRI WIDTH 14.3 % (0-14.5); WHITE BLOOD COUNT 20.4 10*3/uL (4.8-10.8)
[2017-09-24 07:57] VITALS: BP 116/58
[2017-09-24 08:06] LABS: PLATELET SUFFICIENCY NORMAL (NORMAL); TOTAL CELLS COUNTED 100 #CELLS
[2017-09-24 08:13] LABS: ALBUMIN 3.4 gm/dl (3.1-4.5); BUN 18 mg/dl (7-24); CHLORIDE 108 mmol/L (98-107); POTASSIUM 3.9 mmol/L (3.5-5.1); SODIUM 142 mmol/L (136-145); TOTAL PROTEIN 7.6 gm/dL (6.4-8.2)
[2017-09-24 08:25] LABS: ALKALINE PHOSPHATASE 124 U/L (45-117); CHOLESTEROL 184 mg/dL (<200); CREATININE 0.97 mg/dL (0.55-1.02); HDL CHOLESTEROL 60 mg/dl (40-60); LDL CHOLESTEROL 97 mg/dL (9-159); PHOSPHOROUS 3.2 mg/dL (2.5-4.9); SGOT/AST 43 IU/L (3-35); SGPT/ALT 43 U/L (12-78); THYROID STIM HORMONE (HS) 0.292 uIU/ml (0.358-4.75); TRIGLYCERIDES 137 mg/dl (<150); VLDL CHOLESTEROL 27 mg/dL (6-40)
[2017-09-24 11:56] VITALS: BP 151/69
[2017-09-24 16:00] VITALS: BP 105/53
[2017-09-24 20:00] VITALS: BP 111/54; BP 147/51
[2017-09-25] VITALS: BP 111/70
[2017-09-25 06:54] LABS: HEMATOCRIT 41.1 % (37.0-47.0); HEMOGLOBIN 13.4 g/dl (12.0-16.0); MEAN CELL VOLUME 97.6 fl (81.0-99.0); MEAN CORPUSCULAR HGB 31.8 pg (27.0-31.0); MEAN CORPUSCULAR HGB CONC 32.6 g/dl (33.0-37.0); MEAN PLATELET VOLUME 9.7 fl (9.6-12.3); PLATELET COUNT AUTOMATED 233 10*3/uL (130-400); RED BLOOD COUNT 4.21 10*6/uL (4.10-5.10); RED CELL DISTRI WIDTH 14.3 % (0-14.5); WHITE BLOOD COUNT 21.7 10*3/uL (4.8-10.8)
[2017-09-25 07:26] LABS: ALBUMIN 3.2 gm/dl (3.1-4.5); CHLORIDE 112 mmol/L (98-107); POTASSIUM 4.1 mmol/L (3.5-5.1); SGPT/ALT 39 U/L (12-78); SODIUM 144 mmol/L (136-145)
[2017-09-25 07:30] LABS: PLATELET SUFFICIENCY NORMAL (NORMAL); TOTAL CELLS COUNTED 100 #CELLS
[2017-09-25 07:34] LABS: ALKALINE PHOSPHATASE 116 U/L (45-117); BUN 20 mg/dl (7-24); CREATININE 0.81 mg/dL (0.55-1.02); SGOT/AST 29 IU/L (3-35); TOTAL PROTEIN 6.9 gm/dL (6.4-8.2)
[2017-09-25 08:00] VITALS: BP 122/68
[2017-09-25] MEDS ORDERED: AZITHROMYCIN500 M2 PO (10:52)
[2017-09-25] MEDS ORDERED: FLONASE ALLERG9.9 ML NAS (10:52)
[2017-09-25] MEDS ORDERED: BENZONATATE100 M1 PO (10:52)
[2017-09-25] MEDS ORDERED: PREDNISONE10 MG PO (10:52)
== END 2017-09-25 11:42 | disposition home or self-care (01) | DRG 871 ==
LOC: ED 15:53 → EDHOLD 17:24 → 4E 17:24
PROVIDERS: Internal Medicine Hospice and Palliative Medicine; Physician Assistant
DX: A41.9 Sepsis, unspecified organism (principal); J18.9 Pneumonia, unspecified organism; E87.8 Other disorders of electrolyte and fluid balance, not elsewhere classified; J45.901 Unspecified asthma with (acute) exacerbation; E83.41 Hypermagnesemia; E44.1 Mild protein-calorie malnutrition; K57.90 Diverticulosis of intestine, part unspecified, without perforation or abscess without bleeding; E78.5 Hyperlipidemia, unspecified; Z96.651 Presence of right artificial knee joint; D72.810 Lymphocytopenia; R74.0 Nonspecific elevation of levels of transaminase and lactic acid dehydrogenase [LDH]; M15.9 Polyosteoarthritis, unspecified; K76.0 Fatty (change of) liver, not elsewhere classified; J30.2 Other seasonal allergic rhinitis; E66.9 Obesity, unspecified; G40.909 Epilepsy, unspecified, not intractable, without status epilepticus; Z87.820 Personal history of traumatic brain injury; Z90.710 Acquired absence of both cervix and uterus; Z83.3 Family history of diabetes mellitus; Z82.49 Family history of ischemic heart disease and other diseases of the circulatory system; Z88.1 Allergy status to other antibiotic agents; Z88.8 Allergy status to other drugs, medicaments and biological substances; Z79.899 Other long term (current) drug therapy; Z71.6 Tobacco abuse counseling; Z72.0 Tobacco use; Z68.39 Body mass index [BMI] 39.0-39.9, adult

== ENCOUNTER → 2017-09-30 | Outpatient (CLI) | payer MEDICARE, MEDICAID ==
[~2017-09-30] MED LIST changes: +AZITHROMYCIN500 M2 PO; +BENZONATATE100 M1 PO; +FLONASE ALLERG9.9 ML NAS
== END | disposition home or self-care (01) ==
LOC: US 06:26
DX: I65.23 Occlusion and stenosis of bilateral carotid arteries (principal); Z72.0 Tobacco use

== ENCOUNTER → 2017-10-16 | Outpatient (CLI) | payer MEDICARE, MEDICAID | END | disposition home or self-care (01) | LOC: ORTHO 01:04 | DX: M25.551 Pain in right hip (principal); Z96.641 Presence of right artificial hip joint ==

== ENCOUNTER 2018-01-23 17:16 | Emergency (ER) | payer MEDICARE, MEDICAID ==
[~2018-01-23] VITALS: Wt 95.3 kg
[2018-01-23 17:45] LABS: BASO # 0.1 10*3/uL (0.0-0.1); BASO % 0.6 % (0.0-1.0); EOS # 0.4 10*3/uL (0.0-0.4); EOS % 3.1 % (1.0-4.0); HEMATOCRIT 39.6 % (37.0-47.0); HEMOGLOBIN 13.4 g/dl (12.0-16.0); LYMPH # 2.2 10*3/uL (1.3-4.4); LYMPH % 16.1 % (27.0-41.0); MEAN CORPUSCULAR HGB 32.1 pg (27.0-31.0); MEAN CORPUSCULAR HGB CONC 33.8 g/dl (33.0-37.0); MEAN PLATELET VOLUME 9.5 fl (9.6-12.3); MONO % 7.3 % (3.0-9.0); NEUT % 72.3 % (47.0-73.0); PLATELET COUNT AUTOMATED 249 10*3/uL (130-400); RED BLOOD COUNT 4.17 10*6/uL (4.10-5.10); RED CELL DISTRI WIDTH 13.9 % (0-14.5); WHITE BLOOD COUNT 13.8 10*3/uL (4.8-10.8)
[2018-01-23 17:59] LABS: ALBUMIN 3.5 gm/dl (3.1-4.5); ALKALINE PHOSPHATASE 131 U/L (45-117); BUN 11 mg/dl (7-24); CHLORIDE 108 mmol/L (98-107); CREATININE 0.86 mg/dL (0.55-1.02); LIPASE 487 U/L (73-393); POTASSIUM 3.5 mmol/L (3.5-5.1); SGOT/AST 20 IU/L (3-35); SGPT/ALT 27 U/L (12-78); SODIUM 142 mmol/L (136-145); TOTAL PROTEIN 7.5 gm/dL (6.4-8.2)
[2018-01-23 18:12] LABS: BILIRUBIN NEGATIVE (NEGATIVE); BLOOD NEGATIVE (NEGATIVE); CLARITY CLEAR (CLEAR); COLOR YELLOW (YELLOW); GLUCOSE NEGATIVE (NEGATIVE); KETONE NEGATIVE (NEGATIVE); LEUKO ESTERASE NEGATIVE (NEGATIVE); NITRITE NEGATIVE (NEGATIVE); UROBILINOGEN 0.2 E.U./dl (0.2-1.0)
[2018-01-23 18:23] LABS: BACTERIA TRACE; RBC 0-2 rbc/hpf (0-2); WBC 0-2 wbc/hpf (0-5)
[2018-01-23 19:49] VITALS: BP 126/69
[2018-01-23] MEDS ORDERED: NAPROSYN500 MG PO (20:04)
[2018-01-23] MEDS ORDERED: ZOFRAN4 MG PO (20:04)
[2018-01-23] MEDS ORDERED: AUGMENTIN 500500 MG PO (20:04)
== END 2018-01-23 20:08 | disposition home or self-care (01) ==
LOC: ED 17:16
PROVIDERS: Nurse Practitioner Family
DX: K57.90 Diverticulosis of intestine, part unspecified, without perforation or abscess without bleeding (principal); R03.0 Elevated blood-pressure reading, without diagnosis of hypertension; E78.5 Hyperlipidemia, unspecified; E66.9 Obesity, unspecified; J45.909 Unspecified asthma, uncomplicated; F17.200 Nicotine dependence, unspecified, uncomplicated; Z88.6 Allergy status to analgesic agent; Z88.5 Allergy status to narcotic agent; Z88.8 Allergy status to other drugs, medicaments and biological substances; Z79.2 Long term (current) use of antibiotics; Z79.899 Other long term (current) drug therapy; Z90.710 Acquired absence of both cervix and uterus

== ENCOUNTER 2018-04-20 14:26 | Emergency (ER) | payer MEDICARE, MEDICAID ==
[~2018-04-20] VITALS: Ht 160 cm; Wt 104.3 kg
[~2018-04-20 14:26] MED LIST changes: +AUGMENTIN 500500 MG PO; +NAPROSYN500 MG PO; +ZOFRAN4 MG PO
[2018-04-20 15:22] LABS: BASO # 0.1 10*3/uL (0.0-0.1); BASO % 0.6 % (0.0-1.0); EOS # 0.4 10*3/uL (0.0-0.4); EOS % 3.5 % (1.0-4.0); HEMOGLOBIN 14.2 g/dl (12.0-16.0); LYMPH # 2.5 10*3/uL (1.3-4.4); LYMPH % 20.6 % (27.0-41.0); MEAN CELL VOLUME 95.5 fl (81.0-99.0); MEAN CORPUSCULAR HGB 32.3 pg (27.0-31.0); MEAN CORPUSCULAR HGB CONC 33.8 g/dl (33.0-37.0); MEAN PLATELET VOLUME 9.1 fl (9.6-12.3); MONO # 1.1 10*3/uL (0.1-1.0); MONO % 8.6 % (3.0-9.0); NEUT % 66.3 % (47.0-73.0); PLATELET COUNT AUTOMATED 226 10*3/uL (130-400); RED CELL DISTRI WIDTH 13.2 % (0-14.5); WHITE BLOOD COUNT 12.1 10*3/uL (4.8-10.8)
[2018-04-20 15:45] LABS: ALBUMIN 3.2 gm/dl (3.1-4.5); ALKALINE PHOSPHATASE 149 U/L (45-117); BUN 14 mg/dl (7-24); CHLORIDE 109 mmol/L (98-107); SGOT/AST 34 IU/L (3-35); SGPT/ALT 41 U/L (12-78); SODIUM 142 mmol/L (136-145); TOTAL PROTEIN 7.4 gm/dL (6.4-8.2)
[2018-04-20 16:07] VITALS: BP 132/82
[2018-04-20] MEDS ORDERED: VIBRAMYCIN100 MG PO (16:58)
[2018-04-20] MEDS ORDERED: PREDNISONE20 M1 PO (16:58)
[2018-04-20] MEDS ORDERED: PROVENTIL HFA6.7 GM IH (17:03)
== END 2018-04-20 17:19 | disposition home or self-care (01) ==
LOC: ED 14:26
PROVIDERS: Emergency Medicine
DX: J40 Bronchitis, not specified as acute or chronic (principal); R19.7 Diarrhea, unspecified; E78.5 Hyperlipidemia, unspecified; E66.9 Obesity, unspecified; F17.200 Nicotine dependence, unspecified, uncomplicated; Z88.6 Allergy status to analgesic agent; Z88.5 Allergy status to narcotic agent; Z88.8 Allergy status to other drugs, medicaments and biological substances; Z79.899 Other long term (current) drug therapy; Z90.710 Acquired absence of both cervix and uterus

== ENCOUNTER → 2019-03-17 | Outpatient (CLI) | payer MEDICARE, MEDICAID ==
[~2019-03-17] MED LIST changes: +PREDNISONE20 M1 PO; +PROVENTIL HFA6.7 GM IH
== END | disposition home or self-care (01) ==
LOC: US 09:25
DX: K76.0 Fatty (change of) liver, not elsewhere classified (principal)

== ENCOUNTER → 2019-04-16 | Outpatient (CLI) | payer MEDICARE, MEDICAID ==
[~2019-04-16] MED LIST changes: +CLINDAMYCIN HC300 MG PO
== END | disposition home or self-care (01) ==
LOC: ORTHO 00:13
DX: Z96.659 Presence of unspecified artificial knee joint (principal)

== ENCOUNTER 2019-04-22 18:32 | Emergency (ER) | payer MEDICARE, MEDICAID ==
[~2019-04-22] VITALS: Ht 160 cm; Wt 95.3 kg
[2019-04-22 18:32] VITALS: BP 136/72
[~2019-04-22 18:32] MED LIST changes: -CLINDAMYCIN HC300 MG PO
[2019-04-22] MEDS ORDERED: CLINDAMYCIN HC300 MG PO (18:57)
== END 2019-04-22 19:10 | disposition home or self-care (01) ==
LOC: ED 18:32
DX: J34.0 Abscess, furuncle and carbuncle of nose (principal); G40.909 Epilepsy, unspecified, not intractable, without status epilepticus; J45.909 Unspecified asthma, uncomplicated; E78.5 Hyperlipidemia, unspecified; E66.9 Obesity, unspecified; F17.200 Nicotine dependence, unspecified, uncomplicated; Z88.6 Allergy status to analgesic agent; Z88.5 Allergy status to narcotic agent; Z79.899 Other long term (current) drug therapy; Z79.2 Long term (current) use of antibiotics; Z68.30 Body mass index [BMI] 30.0-30.9, adult

== ENCOUNTER 2020-01-06 10:08 | Emergency (ER) | payer OTHER, MEDICAID ==
[~2020-01-06] VITALS: Ht 160 cm; Wt 99.8 kg
[~2020-01-06 10:08] MED LIST changes: +CLINDAMYCIN HC300 MG PO
[2020-01-06 10:18] VITALS: BP 131/71
[2020-01-06 11:13] LABS: BASO # 0.1 10*3/uL (0.0-0.1); BASO % 0.6 % (0.0-1.0); EOS # 0.4 10*3/uL (0.0-0.4); EOS % 3.5 % (1.0-4.0); HEMATOCRIT 42.5 % (37.0-47.0); LYMPH # 1.8 10*3/uL (1.3-4.4); LYMPH % 17.3 % (27.0-41.0); MEAN CELL VOLUME 94.4 fl (81.0-99.0); MEAN CORPUSCULAR HGB 30.7 pg (27.0-31.0); MEAN CORPUSCULAR HGB CONC 32.5 g/dl (33.0-37.0); MEAN PLATELET VOLUME 9.5 fl (9.6-12.3); MONO # 0.9 10*3/uL (0.1-1.0); MONO % 8.6 % (3.0-9.0); NEUT # 7.3 10*3/uL (2.3-7.9); NEUT % 69.6 % (47.0-73.0); PLATELET COUNT AUTOMATED 242 10*3/uL (130-400); RED CELL DISTRI WIDTH 13.8 % (0-14.5); WHITE BLOOD COUNT 10.5 10*3/uL (4.8-10.8)
[2020-01-06 11:23] LABS: ALBUMIN 3.3 gm/dl (3.1-4.5); ALKALINE PHOSPHATASE 133 U/L (45-117); BUN 16 mg/dl (7-24); CHLORIDE 113 mmol/L (98-107); CREATININE 0.91 mg/dL (0.55-1.02); LIPASE 52 U/L (73-393); POTASSIUM 3.5 mmol/L (3.5-5.1); SGOT/AST 25 IU/L (3-35); SGPT/ALT 32 U/L (12-78); SODIUM 139 mmol/L (136-145); TOTAL PROTEIN 7.4 gm/dL (6.4-8.2)
[2020-01-06 11:27] LABS: ACT PARTIAL THROMBO TIME 29.1 SECONDS (20.0-32.1)
[2020-01-06 14:29] LABS: BILIRUBIN NEGATIVE; CLARITY CLEAR (CLEAR); COLOR YELLOW (YELLOW); GLUCOSE NEGATIVE; KETONE NEGATIVE; SPECIFIC GRAVITY > 1.300 (1.001-1.030)
[2020-01-06 14:30] LABS: BLOOD NEGATIVE (NEGATIVE); LEUKO ESTERASE NEGATIVE (NEGATIVE); NITRITE NEGATIVE (NEGATIVE); PH 5.5 (4.5-8.0)
[2020-01-06 14:34] LABS: BACTERIA TRACE; CALCIUM OXALATE CRYSTALS 1+; EPITHELIAL CELLS 21-30; MUCOUS TRACE; RBC 0-2 rbc/hpf (0-2); WBC 0-2 wbc/hpf (0-5); YEAST 2+
[2020-01-06] MEDS ORDERED: PEPCID20 MG PO (14:56)
== END 2020-01-06 14:58 | disposition home or self-care (01) ==
LOC: ED 10:08
PROVIDERS: Emergency Medicine
DX: K29.00 Acute gastritis without bleeding (principal); Z79.899 Other long term (current) drug therapy

== ENCOUNTER → 2020-05-31 | Outpatient (CLI) | payer OTHER, MEDICAID ==
[~2020-05-31] MED LIST changes: +CARAFATE1 G1 PO; +PEPCID20 MG PO; +PROTONIX40 MG PO
== END | disposition home or self-care (01) ==
LOC: COVID19 09:47
PROVIDERS: ATTEND Surgery
DX: Z01.812 Encounter for preprocedural laboratory examination (principal); Z20.822 Contact with and (suspected) exposure to COVID-19

== ENCOUNTER → 2020-06-05 | Day surgery (SDC) | payer OTHER, MEDICAID ==
[~2020-06-05] VITALS: Ht 162.5 cm; Wt 104.3 kg
[2020-06-05 07:33] VITALS: BP 106/55
[2020-06-05 08:53] VITALS: BP 99/60
[2020-06-05 09:05] VITALS: BP 111/60
[2020-06-05 09:25] VITALS: BP 110/60
== END ==
LOC: SDC 03-23 08:45
PROVIDERS: ATTEND Surgery
DX: Z12.11 Encounter for screening for malignant neoplasm of colon (principal); R13.10 Dysphagia, unspecified; K57.30 Diverticulosis of large intestine without perforation or abscess without bleeding; K29.50 Unspecified chronic gastritis without bleeding; K29.80 Duodenitis without bleeding; J44.9 Chronic obstructive pulmonary disease, unspecified; Z85.828 Personal history of other malignant neoplasm of skin

== ENCOUNTER → 2020-08-02 | Outpatient (CLI) | payer OTHER, MEDICAID | END | disposition home or self-care (01) | LOC: RAD 12:34 | PROVIDERS: ATTEND Physician Assistant | DX: M51.35 Other intervertebral disc degeneration, thoracolumbar region (principal); M48.02 Spinal stenosis, cervical region; M17.12 Unilateral primary osteoarthritis, left knee; R00.2 Palpitations; R56.9 Unspecified convulsions ==

== ENCOUNTER → 2020-08-16 | Outpatient (CLI) | payer OTHER, MEDICAID | END | disposition home or self-care (01) | LOC: CT 08:42 | PROVIDERS: ATTEND Physician Assistant | DX: M15.0 Primary generalized (osteo)arthritis (principal); R56.9 Unspecified convulsions; M54.5 Low back pain; R55 Syncope and collapse; R00.2 Palpitations ==

== ENCOUNTER → 2020-09-14 | Outpatient (CLI) | payer OTHER, MEDICAID | END | disposition home or self-care (01) | LOC: US 09-01 00:15 | PROVIDERS: ATTEND Physician Assistant | DX: I65.23 Occlusion and stenosis of bilateral carotid arteries (principal); M54.5 Low back pain; M15.0 Primary generalized (osteo)arthritis; R56.9 Unspecified convulsions ==

== ENCOUNTER → 2021-08-07 | Outpatient (CLI) | payer OTHER, MEDICAID ==
[2021-08-07 08:42] LABS: HEMATOCRIT 45.7 % (37.0-47.0); MEAN CELL VOLUME 96.2 fl (81.0-99.0); MEAN CORPUSCULAR HGB CONC 33.3 g/dl (33.0-37.0); MEAN PLATELET VOLUME 9.7 fl (9.6-12.3); RED BLOOD COUNT 4.75 10*6/uL (4.10-5.10); RED CELL DISTRI WIDTH 13.7 % (0-14.5); WHITE BLOOD COUNT 10.7 10*3/uL (4.8-10.8)
[2021-08-07 08:59] LABS: ALKALINE PHOSPHATASE 122 U/L (45-117); BUN 13 mg/dl (7-24); CHLORIDE 110 mmol/L (98-107); CHOLESTEROL 190 mg/dL (<200); CREATININE 0.99 mg/dL (0.55-1.02); LDL CHOLESTEROL 93 mg/dL (9-159); POTASSIUM 3.9 mmol/L (3.5-5.1); SGOT/AST 62 IU/L (3-35); SGPT/ALT 58 U/L (12-78); SODIUM 142 mmol/L (136-145); TOTAL PROTEIN 7.5 gm/dL (6.4-8.2); TRIGLYCERIDES 248 mg/dl (<150)
== END | disposition home or self-care (01) ==
LOC: LAB 08:25
PROVIDERS: ATTEND Physician Assistant
DX: M15.0 Primary generalized (osteo)arthritis (principal); J43.9 Emphysema, unspecified; E78.00 Pure hypercholesterolemia, unspecified; F17.200 Nicotine dependence, unspecified, uncomplicated; L72.3 Sebaceous cyst; J01.10 Acute frontal sinusitis, unspecified

== ENCOUNTER → 2021-09-06 | Outpatient (CLI) | payer OTHER, MEDICAID | END | disposition home or self-care (01) | LOC: US 07:22 | PROVIDERS: ATTEND Physician Assistant | DX: R79.89 Other specified abnormal findings of blood chemistry (principal); K76.0 Fatty (change of) liver, not elsewhere classified ==

== ENCOUNTER → 2021-11-21 | Day surgery (SDC) | payer OTHER, MEDICAID ==
[~2021-11-21] VITALS: Ht 160 cm; Wt 108.9 kg
[2021-11-21 09:55] VITALS: BP 132/54
[2021-11-21 10:48] VITALS: BP 126/65
[2021-11-21 10:52] VITALS: BP 155/67
[2021-11-21 11:07] VITALS: BP 126/65
[2021-11-21 11:12] VITALS: BP 116/69
== END | disposition home or self-care (01) ==
LOC: SDC 11-16 12:30
PROVIDERS: ATTEND Ophthalmology
DX: H25.812 Combined forms of age-related cataract, left eye (principal); J44.9 Chronic obstructive pulmonary disease, unspecified; Z85.828 Personal history of other malignant neoplasm of skin; F17.210 Nicotine dependence, cigarettes, uncomplicated; Z90.710 Acquired absence of both cervix and uterus; Z96.659 Presence of unspecified artificial knee joint; Z98.890 Other specified postprocedural states; Z88.5 Allergy status to narcotic agent; Z88.8 Allergy status to other drugs, medicaments and biological substances

== ENCOUNTER → 2021-12-29 | Outpatient (CLI) | payer OTHER, MEDICAID ==
[2021-12-29 08:14] LABS: TOTAL PROTEIN 7.5 gm/dL (6.4-8.2)
== END ==
LOC: LAB 07:40
PROVIDERS: ATTEND Physician Assistant
DX: E78.00 Pure hypercholesterolemia, unspecified (principal); R79.89 Other specified abnormal findings of blood chemistry

== ENCOUNTER → 2022-08-26 | Outpatient (CLI) | payer OTHER, MEDICAID | END | disposition home or self-care (01) | LOC: RAD 10:41 | PROVIDERS: ATTEND Physician Assistant | DX: M15.0 Primary generalized (osteo)arthritis (principal); M54.50 Low back pain, unspecified ==

== ENCOUNTER → 2022-09-06 | Outpatient (CLI) | payer OTHER, MEDICAID | END | disposition home or self-care (01) | LOC: RAD 10:29 | PROVIDERS: ATTEND Physician Assistant | DX: Z12.2 Encounter for screening for malignant neoplasm of respiratory organs (principal); Z13.820 Encounter for screening for osteoporosis; J98.11 Atelectasis; J43.9 Emphysema, unspecified; Z78.0 Asymptomatic menopausal state; J40 Bronchitis, not specified as acute or chronic; F17.210 Nicotine dependence, cigarettes, uncomplicated ==

== ENCOUNTER 2023-10-05 09:43 | Emergency (ER) | payer OTHER, MEDICAID ==
[~2023-10-05 09:43] MED LIST changes: +PREDNISONE50 MG PO; +ZITHROMAX250 MG PO
[2023-10-05 10:52] VITALS: BP 100/53
[2023-10-05] MEDS ORDERED: Ketorolac Tromethamine 60 MG/2 ML VIAL IM ONE (11:30)
== END 2023-10-05 13:15 | disposition home or self-care (01) ==
LOC: ED 09:43
DX: S86.911A Strain of unspecified muscle(s) and tendon(s) at lower leg level, right leg, initial encounter (principal); J44.9 Chronic obstructive pulmonary disease, unspecified; F17.200 Nicotine dependence, unspecified, uncomplicated; Z88.5 Allergy status to narcotic agent; Z88.8 Allergy status to other drugs, medicaments and biological substances; Z90.710 Acquired absence of both cervix and uterus; Z95.5 Presence of coronary angioplasty implant and graft; Z96.651 Presence of right artificial knee joint; Z98.890 Other specified postprocedural states; W19.XXXA Unspecified fall, initial encounter; Y93.89 Activity, other specified; Y92.89 Other specified places as the place of occurrence of the external cause; Y99.8 Other external cause status

== ENCOUNTER → 2023-10-20 | Outpatient (CLI) | payer OTHER, MEDICAID | END | disposition home or self-care (01) | LOC: RAD 15:32 | PROVIDERS: ATTEND Physician Assistant | DX: M47.816 Spondylosis without myelopathy or radiculopathy, lumbar region (principal); M79.604 Pain in right leg; Z96.651 Presence of right artificial knee joint; W19.XXXA Unspecified fall, initial encounter ==